=== PATIENT | female | born 1995 | race Hispanic/Latino ===

== ENCOUNTER 2019-04-07 22:12 | Emergency (ER) | payer OTHER ==
[~2019-04-07] VITALS: Ht 165.1 cm; Wt 63.5 kg
[2019-04-07] MEDS ORDERED: ONDANSETRON HCL INJ 2MG/ML 2ML 2 MG/ML VIAL IV STA (22:54)
[2019-04-07] MEDS ORDERED: SODIUM CHLORIDE 0.9% 1000ML 0 ML IV SCH (23:00)
[2019-04-07] MEDS ORDERED: ONDANSETRON HCL INJ 2MG/ML 2ML 2 MG/ML VIAL ONE (23:28)
[2019-04-07] MEDS ORDERED: SODIUM CHLORIDE 0.9% 1000ML 1,000 ML ONE (23:28)
[2019-04-08 01:45] VITALS: BP 127/69
== END 2019-04-08 01:56 | disposition home or self-care (01) ==
LOC: FSED 22:12
DX: R11.2 Nausea with vomiting, unspecified (principal); K52.9 Noninfective gastroenteritis and colitis, unspecified
CPT/HCPCS: 80053; 80076; 81003; 81025; 83605; 85025; 87040; 87400; 93005; 96374; 99284; J2405; J7030

== ENCOUNTER 2019-06-13 06:43 | Emergency (ER) | payer SELFPAY ==
[~2019-06-13] VITALS: Ht 165.1 cm; Wt 65.1 kg
[2019-06-13] MEDS ORDERED: AMOXICILLIN250 MG PO (07:29)
[2019-06-13 07:44] VITALS: BP 112/65
== END 2019-06-13 07:50 | disposition home or self-care (01) ==
LOC: FSED 06:43
DX: H65.01 Acute serous otitis media, right ear (principal)
CPT/HCPCS: 99282

== ENCOUNTER 2020-08-12 22:58 | Emergency (ER) | payer OTHER ==
[~2020-08-12] VITALS: Ht 165.1 cm; Wt 61.2 kg
[~2020-08-12 22:58] MED LIST: AMOXICILLIN250 MG PO
[2020-08-12] MEDS ORDERED: ONDANSETRON HCL INJ 2MG/ML 2ML 2 MG/ML VIAL IV STA (23:21)
[2020-08-12] MEDS ORDERED: SODIUM CHLORIDE 0.9% 1000ML 1,000 ML IV SCH (23:30)
[2020-08-12] MEDS ORDERED: ONDANSETRON HCL INJ 2MG/ML 2ML 2 MG/ML VIAL ONE (23:31)
[2020-08-13] MEDS ORDERED: ONDANSETRON ODT4 MG PO (00:27)
[2020-08-13 00:40] VITALS: BP 136/72
== END 2020-08-13 00:40 | disposition home or self-care (01) ==
LOC: FSED 23:02
DX: R11.2 Nausea with vomiting, unspecified (principal); E86.1 Hypovolemia; E86.0 Dehydration
CPT/HCPCS: 80053; 81003; 81025; 85025; 96374; 99283; J2405; J7030